=== PATIENT | male | born 1950 | race Caucasian/White ===

== ENCOUNTER 2018-11-03 21:18 | Inpatient (IN) ==
[2018-11-03] MEDS ORDERED: Morphine Inj 4 MG/ML Vial IV.PUSH ONE (21:39)
--- NOTE | 2018-11-03 21:44 | ED ---
HPI General Chief complaint: Abdominal Pain Stated complaint: Medical Time Seen by Provider: 11/03/18 21:38 History of Present Illness HPI narrative: This is a 68-year-old male who is on vacation from [place]. He reports a remote history of prostate cancer which was treated 12 years ago as well as a history of hyperlipidemia. He presents via EMS for evaluation of abdominal pain. This started this afternoon. The pain is primarily in the mid abdomen. The pain is intermittent. He reports that initially he had some nausea and vomiting however the nausea improved after Zofran administration by EMS. He reports that he had a large bowel movement prior to arrival. He is denying any objective fevers, flank pain, back pain, dysuria, testicular or scrotal pain. Denies any history of abdominal surgeries in the past. He has no other complaints at this time. Related Data Home Medications Medication Instructions Recorded Confirmed Crestor 5 mg PO DAILY 11/03/18 11/03/18 Allergies Allergy/AdvReac Type Severity Reaction Status Date / Time No Known Allergies Allergy Verified 11/03/18 21:33 Review of Systems ROS: all other systems reviewed are negative PMFSH Medical History Medical History Prostate cancer (Acute) Social History Social History Second Hand Smoke Exposure: No Smoking Status: Never smoker How Often Do You Have a Drink Containing Alcohol: Monthly or less Recent Travel in [facility] within the Last 8 Weeks: No Recent Out of Country Travel within the Last 8 Weeks: No Immunization History Tetanus Immunization: <5 Years Exam Narrative Exam Narrative: GENERAL: Well-nourished male in no acute distress SKIN: Warm and dry. HEAD: Atraumatic. Normocephalic. EYES: Pupils equal and round. No scleral icterus. No injection or drainage. ENT: No nasal bleeding or discharge. Mucous membranes pink and moist. NECK: Trachea midline. No JVD. CARDIOVASCULAR: Regular rate and rhythm. No murmur appreciated. RESPIRATORY: No accessory muscle use. Clear to auscultation. Breath sounds equal bilaterally. GASTROINTESTINAL: Abdomen soft, tender to palpation in the lower quadrants without guarding. MUSCULOSKELETAL: No obvious deformities. No clubbing. No cyanosis. No edema. NEUROLOGICAL: Awake and alert. No obvious cranial nerve deficits. Motor grossly within normal limits. Normal speech. Course Initial Documented Vital Signs Temperature 98.0 F 11/03/18 21:26 Pulse Rate 79 11/03/18 21:26 Respiratory Rate 16 11/03/18 21:26 Blood Pressure 142/67 H 11/03/18 21:26 Pulse Oximetry 99 11/03/18 21:26 Last Documented Vital Signs Temperature 98.0 F 11/03/18 21:26 Pulse Rate 71 11/03/18 23:33 Respiratory Rate 16 11/03/18 23:33 Blood Pressure 123/67 11/03/18 23:33 Pulse Oximetry 97 11/03/18 23:33 Medical Decision Making MDM Narrative Medical decision making narrative: The patient was placed on ECG monitoring pulse oximetry. IV established, lab work obtained, CT abdomen pelvis ordered. The patient was given IV morphine. He was given normal saline bolus. Lab work is been reviewed. CT imaging reveals a partial small bowel obstruction with no other obvious abnormalities. The appendix is not visualized however there are no inflammatory changes to suggest appendicitis. He has no leukocytosis. He is currently comfortable. He has no additional emesis during his ED stay. At this point in time the plan is to admit him to the hospitalist service for further treatment. Medical Screen Exam Complete: Yes Emergency Medical Condition: Yes Differential Diagnosis Differential Diagnosis: Appendicitis, diverticulitis, colitis, gastroenteritis, obstruction, mesenteric ischemia Lab Data Result diagrams: 11/03/18 21:45 11/03/18 21:45 Lab Results 11/03/18 11/03/18 11/03/18 Range/Units 21:45 21:45 21:45 WBC 8.8 (4.0-11.0) th/mm3 RBC 4.31 L (4.50-5.90) mil/mm3 Hgb 14.3 (13.0-17.0) gm/dL Hct 40.6 (39.0-51.0) % MCV 94.2 (80.0-100.0) fL MCH 33.2 (27.0-34.0) pg MCHC 35.3 (32.0-36.0) % RDW 12.2 (11.6-17.2) % Plt Count 162 (150-450) th/mm3 MPV 8.3 (7.0-11.0) fL Neut % (Auto) 88.6 H (16.0-70.0) % Lymph % (Auto) 7.1 L (9.0-44.0) % [place] % (Auto) 3.9 (0.0-8.0) % Eos % (Auto) 0.1 (0.0-4.0) % Baso % (Auto) 0.3 (0.0-2.0) % Neut # (Auto) 7.8 H (1.8-7.7) th/mm3 Lymph # (Auto) 0.6 L (1.0-4.8) th/mm3 [place] # (Auto) 0.3 (0.0-0.9) th/mm3 Eos # (Auto) 0.0 (0.0-0.4) th/mm3 Baso # (Auto) 0.0 (0.0-0.2) th/mm3 WBC Differential . Differential Comment Auto diff final PT 10.5 (9.8-11.6) sec INR 1.0 Ratio APTT 20.6 L (23.4-31.7) sec Sodium 139 (136-145) meq/L Potassium 3.9 (3.5-5.1) meq/L Chloride 105 (98-107) meq/L Carbon Dioxide 26.3 (21.0-32.0) meq/L Anion Gap 8 (5-15) meq/L BUN 15 (7-18) mg/dL Creatinine 1.11 (0.60-1.30) mg/dL Estimated GFR 65 L (>89) mL/min Random Glucose 161 H (74-106) mg/dL Calcium 9.1 (8.5-10.1) mg/dL Magnesium 2.1 (1.5-2.5) mg/dL Total Bilirubin 0.6 (0.2-1.0) mg/dL AST 22 (15-37) U/L ALT 22 (12-78) U/L Alkaline Phosphatase 69 (45-117) U/L Total Protein 7.6 (6.4-8.2) g/dL Albumin 3.5 (3.4-5.0) g/dL Lipase 128 (73-393) U/L Urine Color (Yellw/Straw) Urine Clarity (Clear) Urine pH (5.0-8.5) Ur Specific [place] (1.002-1.035) Urine Protein (Neg-Trace) mg/dL Urine Glucose (UA) (Negative) mg/dL Urine Ketones (Negative) mg/dL Urine Occult Blood (Negative) Urine Nitrate (Negative) Urine Bilirubin (Negative) Urine Urobilinogen (Less than 2) mg/dL Ur Leukocyte Esterase (Negative) Urine RBC (0-3) /hpf Urine WBC (0-5) /hpf Urine Bacteria (None) /hpf Urine Mucus (Occasional) /lpf Micro UA Comment Ur Microscopic Review Urine Culture Comments 11/03/18 Range/Units 21:45 WBC (4.0-11.0) th/mm3 RBC (4.50-5.90) mil/mm3 Hgb (13.0-17.0) gm/dL Hct (39.0-51.0) % MCV (80.0-100.0) fL MCH (27.0-34.0) pg MCHC (32.0-36.0) % RDW (11.6-17.2) % Plt Count (150-450) th/mm3 MPV (7.0-11.0) fL Neut % (Auto) (16.0-70.0) % Lymph % (Auto) (9.0-44.0) % [place] % (Auto) (0.0-8.0) % Eos % (Auto) (0.0-4.0) % Baso % (Auto) (0.0-2.0) % Neut # (Auto) (1.8-7.7) th/mm3 Lymph # (Auto) (1.0-4.8) th/mm3 [place] # (Auto) (0.0-0.9) th/mm3 Eos # (Auto) (0.0-0.4) th/mm3 Baso # (Auto) (0.0-0.2) th/mm3 WBC Differential Differential Comment PT (9.8-11.6) sec INR Ratio APTT (23.4-31.7) sec Sodium (136-145) meq/L Potassium (3.5-5.1) meq/L Chloride (98-107) meq/L Carbon Dioxide (21.0-32.0) meq/L Anion Gap (5-15) meq/L BUN (7-18) mg/dL Creatinine (0.60-1.30) mg/dL Estimated GFR (>89) mL/min Random Glucose (74-106) mg/dL Calcium (8.5-10.1) mg/dL Magnesium (1.5-2.5) mg/dL Total Bilirubin (0.2-1.0) mg/dL AST (15-37) U/L ALT (12-78) U/L Alkaline Phosphatase (45-117) U/L Total Protein (6.4-8.2) g/dL Albumin (3.4-5.0) g/dL Lipase (73-393) U/L Urine Color Yellow (Yellw/Straw) Urine Clarity Hazy H (Clear) Urine pH 6.0 (5.0-8.5) Ur Specific [place] 1.023 (1.002-1.035) Urine Protein 30 H (Neg-Trace) mg/dL Urine Glucose (UA) Negative (Negative) mg/dL Urine Ketones 80 or greater H (Negative) mg/dL Urine Occult Blood Negative (Negative) Urine Nitrate Negative (Negative) Urine Bilirubin Negative (Negative) Urine Urobilinogen 0.2 (Less than 2) mg/dL Ur Leukocyte Esterase Negative (Negative) Urine RBC Less than 1 (0-3) /hpf Urine WBC 2 (0-5) /hpf Urine Bacteria Rare H (None) /hpf Urine Mucus Few H (Occasional) /lpf Micro UA Comment Culture not ind Ur Microscopic Review Not Reportable Urine Culture Comments Culture not ind Imaging Data Radiologist's impression: Abdomen/Pelvis CT 11/03/18 21:39 CONCLUSION: 1. Proximal to mid partial small bowel obstruction without obstructing lesion. This may relate to adhesions. No free air or free fluid. 2. The appendix is not definitively identified but no inflammatory changes seen within the right lower quadrant to suggest acute appendicitis. Discharge Plan Discharge Disposition Patient Disposition: ED Admit(ED Internal Use Only) Discharge Condition Condition: Stable Discharge Order Discharge Orders: ED Use Only Admit Order (Routine); Ordered 11/03/18 Ordered By: Frank Lopes Discharge Details Diagnosis: Small bowel obstruction Physicians Team ED Provider: Christopher Rosenberg ED Midlevel Provider: Frank Lopes Primary Care Provider: Primary Care OmeriTamera Rxs /Orders / Referrals /Forms Prescriptions: No Action Crestor 5 mg PO DAILY RF: 0 Status ED Status: With Doctor
[2018-11-03 22:07] LABS: Baso % (Auto) 0.3 % (0.0-2.0); Eos % (Auto) 0.1 % (0.0-4.0); Hematocrit 40.6 % (39.0-51.0); Hemoglobin 14.3 gm/dL (13.0-17.0); Lymph # (Auto) 0.6 th/mm3 (1.0-4.8); Lymph % (Auto) 7.1 % (9.0-44.0); Mean Corpuscular HGB Conc 35.3 % (32.0-36.0); Mean Corpuscular Hemoglobin 33.2 pg (27.0-34.0); Mean Corpuscular Volume 94.2 fL (80.0-100.0); Mean Platelet Volume 8.3 fL (7.0-11.0); Mono # (Auto) 0.3 th/mm3 (0.0-0.9); Mono % (Auto) 3.9 % (0.0-8.0); Neut # (Auto) 7.8 th/mm3 (1.8-7.7); Neut % (Auto) 88.6 % (16.0-70.0); Platelet Count 162 th/mm3 (150-450); Red Blood Count 4.31 mil/mm3 (4.50-5.90); Red Cell Distribution Width 12.2 % (11.6-17.2); White Blood Count 8.8 th/mm3 (4.0-11.0)
[2018-11-03 22:10] LABS: Bacteria,Urine Rare /hpf; Bilirubin,Urine Negative (Negative); Clarity,Urine Hazy (Clear); Color,Urine Yellow (Yellw/Straw); Glucose,Urine (UA) Negative (Negative); Leukocyte Esterase,Urine Negative (Negative); Mucus,Urine Few /lpf (Occasional); Nitrite,Urine Negative (Negative); Specific Gravity,Urine 1.023 (1.002-1.035)
[2018-11-03 22:13] LABS: Urobilinogen,Urine 0.2 mg/dL (Less than 2)
[2018-11-03 22:22] LABS: Prothrombin Time 10.5 sec (9.8-11.6)
[2018-11-03 22:26] LABS: Alanine Aminotransferase 22 U/L (12-78); Albumin 3.5 g/dL (3.4-5.0); Anion Gap 8 meq/L (5-15); Aspartate Aminotransferase 22 U/L (15-37); Blood Urea Nitrogen 15 mg/dL (7-18); Calcium 9.1 mg/dL (8.5-10.1); Carbon Dioxide 26.3 meq/L (21.0-32.0); Chloride 105 meq/L (98-107); Glomerular Filtration Rate 65 mL/min (>89); Glucose,Random 161 mg/dL (74-106); Lipase 128 U/L (73-393); Magnesium 2.1 mg/dL (1.5-2.5); Potassium 3.9 meq/L (3.5-5.1); Sodium 139 meq/L (136-145)
[2018-11-03 22:27] LABS: Activated Partial Thrombo Time 20.6 sec (23.4-31.7)
[2018-11-03 22:28] LABS: Alkaline Phosphatase 69 U/L (45-117); Total Protein 7.6 g/dL (6.4-8.2)
[2018-11-03] MEDS ORDERED: Sod Chloride 0.9% Inj 1,000 ML IV.SIG SCH (22:30)
--- NOTE | 2018-11-03 23:26 | CT ---
EXAM DATE: 11/03/2018 11:10 PM EST AGE/SEX: 68 years / Male INDICATIONS: Right lower quadrant pain. CLINICAL DATA: This is the patient's initial encounter. Patient reports that signs and symptoms have been present for 2 days and indicates a pain score of 7/10. MEDICAL/SURGICAL HISTORY: Carcinoma, prostatic. None. ORAL CONTRAST: No oral contrast ingested. RADIATION DOSE: 7.49 CTDI (mGy) COMPARISON: No prior exams available for comparison. TECHNIQUE: Multiple contiguous axial images were obtained through the abdomen and pelvis following b olus infusion of 95 ml Omnipaque 350 (iohexol) nonionic water-soluble contrast as a single exam dos e. No oral contrast ingested. Using automated exposure control and adjustment of the mA and/or kV ac cording to patient size, radiation dose was kept as low as reasonably achievable to obtain optimal di agnostic quality images. DICOM format image data is available electronically for review and comparis on. FINDINGS: Lower Lungs: The visualized lower lungs are clear. Liver: The liver has a homogeneous density without space-occupying lesion. There is no dilation of th e biliary tree. Gallbladder is unremarkable. Spleen: Homogeneous density without enlargement. Pancreas: Unremarkable without mass or calcification. Kidneys: Normal in size and shape. No evidence of mass or hydronephrosis. Adrenal Glands: Unremarkable. Aorta: The aorta and proximal iliac vessels are grossly unremarkable without aneurysmal dilation. Bowel/Mesentery: Dilated loops of fluid-filled proximal small bowel are seen throughout the abdomen with a gentle tapering of the caliber within the left lateral abdomen. No obstructing mass. No inflam matory change. The distal small bowel is normal in caliber as is the colon. The appendix is not defin itively identified but no inflammatory process seen within the right lower quadrant. No free air or f ree fluid Abdominal Wall: Intact. Retroperitoneum: No evidence of adenopathy in the retrocrural, para-aortic, or deep pelvic regions. Bladder: Contours are smooth. Reproductive Organs: No abnormal masses or calcifications seen. Inguinal: The inguinal region is unremarkable without evidence of adenopathy. Bony Structures: Unremarkable. CONCLUSION: 1. Proximal to mid partial small bowel obstruction without obstructing lesion. This may relate to ad hesions. No free air or free fluid. 2. The appendix is not definitively identified but no inflammatory changes seen within the right low er quadrant to suggest acute appendicitis. Electronically signed by: Major Cruz MD Board Certified Radiologist 11/03/2018 11:25 PM EST
[2018-11-04] MEDS ORDERED: Bisacodyl 10 MG Supp RECTAL PRN (00:08)
[2018-11-04] MEDS ORDERED: Acetaminophen 325 MG Tablet PO PRN (00:08)
[2018-11-04] MEDS ORDERED: Morphine Inj 4 MG/ML Vial IV.PUSH PRN (00:12)
--- NOTE | 2018-11-04 00:14 | P.HP ---
History of Present Illness Service: [facility] Primary Care Physician: No Primary Care Physician History of Present Illness: 68-year-old male with past medical history significant for history of prostate cancer and hyperlipidemia presents to the emergency department for evaluation of abdominal pain. The patient reports that he started having severe periumbilical abdominal pain this afternoon. He self-induced vomiting without relief. He endorses associated nausea with no further emesis. Last bowel movement was this evening just before EMS arrived. He endorses chills with no associated fevers. Denies chest pain or shortness of breath. No focal neurologic deficits. Inpatient Certification: I certify that the inpatient services were ordered in accordance with Medicare regulations governing the order. This includes certification that hospital inpatient services are reasonable and necessary and in the case of services not specified as inpatient-only under 42 CFR 419.22(n), that they are appropriately provided as inpatient services in accordance to with the 2-midnight benchmark under 43 CFR 412.3(e) Review of Systems All other systems reviewed negative except as stated in HPI PMFSH - History History Provided By: Patient, Family Member - Medical History Medical History: Medical History (Last Updated 11/04/18 @ 00:10 by Ines Howe MD) Hyperlipidemia Prostate cancer - Surgical History Surgical History: Surgical History (Last Updated 11/04/18 @ 00:11 by Ines Howe MD) History of cataract surgery - Family History Family History: Family History (Last Updated 11/04/18 @ 00:11 by Ines Howe MD) Other Family history normal - Tobacco History Second Hand Smoke Exposure: No Smoking Status: Never smoker - Alcohol History How Often Do You Have a Drink Containing Alcohol: Monthly or less - Travel History Recent Travel in the [place] Within the Last 8 Weeks: No Recent Travel Out of the Country Within the Last 8 Weeks: No - Immunization History Tetanus Immunization: <5 Years Medications and Allergies Active Medications: Active Medications Sodium Chloride (Ns Flush) 2 ml IV.FLUSH PRN PRN PRN Reason: FLUSH AFTER USING IV ACCESS Allergies Allergy/AdvReac Type Severity Reaction Status Date / Time No Known Allergies Allergy Verified 11/03/18 21:33 Home Medications Medication Instructions Recorded Confirmed Type Crestor 5 mg PO DAILY 11/03/18 11/03/18 History Exam Vital signs: Vital Signs 11/03/18 21:26 11/03/18 23:33 Temperature 98.0 F Pulse Rate 79 71 Respiratory Rate 16 16 Blood Pressure 142/67 H 123/67 Pulse Oximetry 99 97 Intake & Output 11/03/18 11/03/18 11/04/18 06:59 18:59 06:59 Intake Total 1000 / 1000 Balance 1000 / 1000 Weight 182 kg Intake: IV 1000 / 1000 NS Inj 1,000 ML @ 1000 mls/hr 1000 / 1000 IV.SIG BOLUS RIMA Rx#:[id number] Narrative: Gen.: No acute distress Head: Normocephalic. Atraumatic. EENT: Pupils equal round and reactive to light. Nose without drainage. Airway intact. Throat without injection. Cardiovascular: Regular rate and rhythm. No murmurs, rubs or gallops. Respiratory: Lungs clear to auscultation bilaterally. No wheezes or rhonchi. Abdomen: Soft, mildly distended, tender to palpation worse in the umbilical region. Musculoskeletal: No gross deformities. No edema. Skin: No obvious rashes or erythema. Neuro: Sensory and motor grossly intact. Cranial nerves II through XII grossly intact. Results - Labs CBC & Chem 7: 11/03/18 21:45 11/03/18 21:45 Labs: Laboratory Results - last 24 hr 11/03/18 11/03/18 11/03/18 21:45 21:45 21:45 WBC 8.8 RBC 4.31 L Hgb 14.3 Hct 40.6 MCV 94.2 MCH 33.2 MCHC 35.3 RDW 12.2 Plt Count 162 MPV 8.3 Neut % (Auto) 88.6 H Lymph % (Auto) 7.1 L [place] % (Auto) 3.9 Eos % (Auto) 0.1 Baso % (Auto) 0.3 Neut # (Auto) 7.8 H Lymph # (Auto) 0.6 L [place] # (Auto) 0.3 Eos # (Auto) 0.0 Baso # (Auto) 0.0 WBC Differential . Differential Comment Auto diff final PT 10.5 INR 1.0 APTT 20.6 L Sodium 139 Potassium 3.9 Chloride 105 Carbon Dioxide 26.3 Anion Gap 8 BUN 15 Creatinine 1.11 Estimated GFR 65 L Random Glucose 161 H Calcium 9.1 Magnesium 2.1 Total Bilirubin 0.6 AST 22 ALT 22 Alkaline Phosphatase 69 Total Protein 7.6 Albumin 3.5 Lipase 128 Urine Color Urine Clarity Urine pH Ur Specific [place] Urine Protein Urine Glucose (UA) Urine Ketones Urine Occult Blood Urine Nitrate Urine Bilirubin Urine Urobilinogen Ur Leukocyte Esterase Urine RBC Urine WBC Urine Bacteria Urine Mucus Micro UA Comment Ur Microscopic Review Urine Culture Comments 11/03/18 21:45 WBC RBC Hgb Hct MCV MCH MCHC RDW Plt Count MPV Neut % (Auto) Lymph % (Auto) [place] % (Auto) Eos % (Auto) Baso % (Auto) Neut # (Auto) Lymph # (Auto) [place] # (Auto) Eos # (Auto) Baso # (Auto) WBC Differential Differential Comment PT INR APTT Sodium Potassium Chloride Carbon Dioxide Anion Gap BUN Creatinine Estimated GFR Random Glucose Calcium Magnesium Total Bilirubin AST ALT Alkaline Phosphatase Total Protein Albumin Lipase Urine Color Yellow Urine Clarity Hazy H Urine pH 6.0 Ur Specific [place] 1.023 Urine Protein 30 H Urine Glucose (UA) Negative Urine Ketones 80 or greater H Urine Occult Blood Negative Urine Nitrate Negative Urine Bilirubin Negative Urine Urobilinogen 0.2 Ur Leukocyte Esterase Negative Urine RBC Less than 1 Urine WBC 2 Urine Bacteria Rare H Urine Mucus Few H Micro UA Comment Culture not ind Ur Microscopic Review Not Reportable Urine Culture Comments Culture not ind - Imaging Impressions Abdomen/Pelvis CT 11/03/18 21:39 CONCLUSION: 1. Proximal to mid partial small bowel obstruction without obstructing lesion. This may relate to adhesions. No free air or free fluid. 2. The appendix is not definitively identified but no inflammatory changes seen within the right lower quadrant to suggest acute appendicitis. Caprini VTE Risk Assessment Caprini VTE Risk Assessment: Moderate/High Risk (score >= 2) Caprini Risk Assessment Model: Point Value = 1 Point Value = 2 Point Value = 3 Point Value = 5 Age 41-60 Minor surgery BMI > 25 kg/m2 Swollen legs Varicose veins or History of unexplained or recurrent spontaneous Oral contraceptives or hormone replacement Sepsis (< 1 month) Serious lung disease, including pneumonia (< 1 month) Abnormal pulmonary function Acute myocardial infarction Congestive heart failure (< 1 month) History of inflammatory bowel disease Medical patient at bed rest Age 61-74 Arthroscopic surgery Major open surgery (> 45 min) Laparoscopic surgery (> 45 min) Malignancy Confined to bed (> 72 hours) Immobilizing plaster cast Central venous access Age >= 75 History of VTE Family history of VTE Factor V Leiden Prothrombin 42428C Lupus anticoagulant Anticardiolipin antibodies Elevated serum homocysteine Heparin-induced thrombocytopenia Other congenital or acquired thrombophilia Stroke (< 1 month) Elective arthroplasty Hip, pelvis, or leg fracture Acute spinal cord injury (< 1 month) Prophylaxis Regimen: Total Risk Factor Score Risk Level Prophylaxis Regimen 0-1 Low Early ambulation 2 Moderate Order ONE of the following: *Sequential Compression Device (SCD) *Heparin 5000 units SQ BID 3-4 Higher Order ONE of the following medications: *Heparin 5000 units SQ TID *Enoxaparin/Lovenox 40 mg SQ daily (WT < 150 kg, CrCl > 30 mL/min) *Enoxaparin/Lovenox 30 mg SQ daily (WT < 150 kg, CrCl > 10-29 mL/min) *Enoxaparin/Lovenox 30 mg SQ BID (WT < 150 kg, CrCl > 30 mL/min) AND/OR *Sequential Compression Device (SCD) 5 or more Highest Order ONE of the following medications: *Heparin 5000 units SQ TID (Preferred with Epidurals) *Enoxaparin/Lovenox 40 mg SQ daily (WT < 150 kg, CrCl > 30 mL/min) *Enoxaparin/Lovenox 30 mg SQ daily (WT < 150 kg, CrCl > 10-29 mL/min) *Enoxaparin/Lovenox 30 mg SQ BID (WT < 150 kg, CrCl > 30 mL/min) AND *Sequential Compression Device (SCD) Assessment and Plan - Plan Assessment/plan: 1. Partial small bowel obstruction CT of the abdomen/pelvis shows proximal to mid partial small bowel obstruction without lesion Patient denies history of previous abdominal surgeries General surgery consulted, appreciate assistance N.p.o. Morphine for pain 2. History of prostate cancer Continue home medications once tolerating p.o. 3. Hyperlipidemia Resume home medications when indicated FEN N.p.o. Electrolytes: Monitor and replete as needed Holding pharmacologic anticoagulation until cleared by general surgery NS at 100 cc/hour
[2018-11-04] MEDS: Sod Chloride 0.9% Inj 1,000 ML IV.CONT SCH ×2 (01:35→21:49)
--- NOTE | 2018-11-04 10:11 | P.CONGS ---
[facility] Gen Surgery Consult Note Consult date: 11/04/18 Reason for consult: other (small bowel obstruction) Requesting physician: Roselia Harley Narrative: This is a 68 year old male with a past medical history of prostate cancer treated with radiation and dyslipidemia who presented to the ED last night for evaluation of acute onset of abdominal pain with nausea and vomiting. He states he was in his usual state of health until yesterday afternoon when he developed the abdominal pain, nausea and vomiting. He did have a bowel movement last night. He reports he has had similar episodes to this in the past. He states this usually happens when he is very tired. He states he is able to take a pill, that he cannot recall the name of, and the symptoms resolve. The patient is from [place] and here on vacation. He drove down over three days and then spent [place] the [place] in the sun. A CT abdomen/ pelvis was obtained which shows proximal to mid partial small bowel obstruction without any obstructing lesions. His laboratory results are unremarkable. He is currently asymptomatic at the time of exam today. Of note, the patient had a colonoscopy about 4 years ago which was normal with no issues. Review of Systems All other systems reviewed negative except as stated in [facility] - History History Provided By: Patient - Medical History Medical History: Medical History (Last Reviewed 11/04/18 @ 10:08 by PERLA Randolph) Hyperlipidemia Prostate cancer - Surgical History Surgical History: Surgical History (Last Reviewed 11/04/18 @ 10:08 by PERLA Randolph) History of cataract surgery - Family History Family History: Family History (Last Updated 11/04/18 @ 00:11 by Ines Howe MD) Other Family history normal - Tobacco History Second Hand Smoke Exposure: No Smoking Status: Never smoker - Alcohol History How Often Do You Have a Drink Containing Alcohol: Monthly or less - Substance Use History Substance History: No History of Abuse - Travel History Recent Travel in the [place] Within the Last 8 Weeks: No Recent Travel Out of the Country Within the Last 8 Weeks: No - Immunization History Tetanus Immunization: <5 Years Hx Influenza Vaccine This Season: Yes Medications and Allergies Allergies Allergy/AdvReac Type Severity Reaction Status Date / Time No Known Allergies Allergy Verified 11/03/18 21:33 Home Medications Medication Instructions Recorded Confirmed Type Crestor 5 mg PO DAILY 11/03/18 11/03/18 History Active Medications: Active Medications Acetaminophen (Tylenol) 650 mg PO Q4H PRN PRN Reason: Temp > 100.4 Al Hydroxide/Mg Hydroxide (Milk Of Magnesia Liq) 30 ml PO Q12H PRN PRN Reason: Mild Constipation Bisacodyl (Dulcolax Supp) 10 mg RECTAL DAILY PRN PRN Reason: SEVERE CONSITIPATION Sodium Chloride (Ns Inj) 1,000 mls @ 100 mls/hr IV.CONT .Q10H COUNT INCLUDES THE [facility] Last Admin: 11/04/18 01:35 Dose: 100 mls/hr Lactulose (Lactulose Liq) 30 ml PO DAILY PRN PRN Reason: SEVERE CONSITIPATION Morphine Sulfate (Morphine Inj) 4 mg IV.PUSH Q3H PRN PRN Reason: PAIN SCALE 1 TO 10 Ondansetron HCl (Zofran Inj) 4 mg IV.PUSH Q6H PRN PRN Reason: NAUSEA OR VOMITING Sennosides (Senokot) 17.2 mg PO Q12H PRN PRN Reason: Moderate Constipation Sodium Chloride (Ns Flush) 2 ml IV.FLUSH BID RIMA Sodium Chloride (Ns Flush) 2 ml IV.FLUSH PRN PRN PRN Reason: FLUSH AFTER USING IV ACCESS Exam Vital signs: Vital Signs 11/03/18 21:26 11/03/18 23:33 11/04/18 01:14 Temperature 98.0 F 98.3 F Pulse Rate 79 71 67 Respiratory Rate 16 16 18 Blood Pressure 142/67 H 123/67 116/56 L Pulse Oximetry 99 97 95 11/04/18 04:23 11/04/18 06:07 11/04/18 09:03 Temperature 98.0 F 99.2 F Pulse Rate 62 64 Respiratory Rate 18 18 18 Blood Pressure 111/57 L 111/58 L Pulse Oximetry 96 95 Intake & Output 11/03/18 11/04/18 11/04/18 18:59 06:59 18:59 Intake Total 1000 / 1000 Balance 1000 / 1000 Weight 76.2 kg Intake: IV 1000 / 1000 NS Inj 1,000 ML @ 1000 mls/hr 1000 / 1000 IV.SIG BOLUS RIMA Rx#:[id number] Oral 0 / 0 Other: # Voids 2 Date of Last Bowel Movement 11/03/18 # Bowel Movements 0 Weight On Admission 76.2 kg Narrative: GENERAL: Very pleasant 68 year old male resting in bed in no acute distress. SKIN: Warm and dry. HEAD: Atraumatic. Normocephalic. EYES: Pupils equal and round. No scleral icterus. No injection or drainage. ENT: No nasal bleeding or discharge. Mucous membranes pink and moist. NECK: Trachea midline. CARDIOVASCULAR: Regular rate and rhythm. RESPIRATORY: No accessory muscle use. Clear to auscultation. Breath sounds equal bilaterally. GASTROINTESTINAL: Abdomen soft, non-tender, nondistended. No visible scars or hernias. MUSCULOSKELETAL: Extremities without clubbing, cyanosis, or edema. No obvious deformities. NEUROLOGICAL: Awake and alert. No obvious cranial nerve deficits. Motor grossly within normal limits. Five out of 5 muscle strength in the arms and legs. Normal speech. PSYCHIATRIC: Appropriate mood and affect; insight and judgment normal. Results - Labs 11/05/18 04:59 11/05/18 04:59 Laboratory Results - last 24 hr 11/03/18 11/03/18 11/03/18 21:45 21:45 21:45 WBC 8.8 RBC 4.31 L Hgb 14.3 Hct 40.6 MCV 94.2 MCH 33.2 MCHC 35.3 RDW 12.2 Plt Count 162 MPV 8.3 Neut % (Auto) 88.6 H Lymph % (Auto) 7.1 L [place] % (Auto) 3.9 Eos % (Auto) 0.1 Baso % (Auto) 0.3 Neut # (Auto) 7.8 H Lymph # (Auto) 0.6 L [place] # (Auto) 0.3 Eos # (Auto) 0.0 Baso # (Auto) 0.0 WBC Differential . Differential Comment Auto diff final PT 10.5 INR 1.0 APTT 20.6 L Sodium 139 Potassium 3.9 Chloride 105 Carbon Dioxide 26.3 Anion Gap 8 BUN 15 Creatinine 1.11 Estimated GFR 65 L Random Glucose 161 H Calcium 9.1 Magnesium 2.1 Total Bilirubin 0.6 AST 22 ALT 22 Alkaline Phosphatase 69 Total Protein 7.6 Albumin 3.5 Lipase 128 Urine Color Urine Clarity Urine pH Ur Specific [place] Urine Protein Urine Glucose (UA) Urine Ketones Urine Occult Blood Urine Nitrate Urine Bilirubin Urine Urobilinogen Ur Leukocyte Esterase Urine RBC Urine WBC Urine Bacteria Urine Mucus Micro UA Comment Ur Microscopic Review Urine Culture Comments 11/03/18 21:45 WBC RBC Hgb Hct MCV MCH MCHC RDW Plt Count MPV Neut % (Auto) Lymph % (Auto) [place] % (Auto) Eos % (Auto) Baso % (Auto) Neut # (Auto) Lymph # (Auto) [place] # (Auto) Eos # (Auto) Baso # (Auto) WBC Differential Differential Comment PT INR APTT Sodium Potassium Chloride Carbon Dioxide Anion Gap BUN Creatinine Estimated GFR Random Glucose Calcium Magnesium Total Bilirubin AST ALT Alkaline Phosphatase Total Protein Albumin Lipase Urine Color Yellow Urine Clarity Hazy H Urine pH 6.0 Ur Specific [place] 1.023 Urine Protein 30 H Urine Glucose (UA) Negative Urine Ketones 80 or greater H Urine Occult Blood Negative Urine Nitrate Negative Urine Bilirubin Negative Urine Urobilinogen 0.2 Ur Leukocyte Esterase Negative Urine RBC Less than 1 Urine WBC 2 Urine Bacteria Rare H Urine Mucus Few H Micro UA Comment Culture not ind Ur Microscopic Review Not Reportable Urine Culture Comments Culture not ind - Imaging Imaging: ITS Impressions Abdomen/Pelvis CT 11/03/18 21:39 CONCLUSION: 1. Proximal to mid partial small bowel obstruction without obstructing lesion. This may relate to adhesions. No free air or free fluid. 2. The appendix is not definitively identified but no inflammatory changes seen within the right lower quadrant to suggest acute appendicitis. CT scan - abdomen: image reviewed Assessment and Plan - Plan 68 year old male with abdominal pain/nausea/vomiting; radiological findings of SBO -Complete resolution of symptoms -Abdominal exam benign -KUB this AM continues to show dilated loops -Will do trial of clear liquids -Discussed surgical vs non surgical management -Encouraged OOB -IVF -If tolerates clear liquids ---will plan to advance diet -Thank you for this consult; We will continue to follow Discussed Condition With: Dr. Luis Smith and Mrs. Palacios - Attending Attestation The exam, history, and the medical decision-making described in the above note were completed with the assistance of the mid-level provider. I reviewed and agree with the findings presented. I attest that I had a [id number] encounter with the patient on the same day, and personally performed and documented my assessment and findings in the medical record. partial SBO abdominal exam stable, non-surgical recommend non-operative mgmt' d/w family/patient
--- NOTE | 2018-11-04 11:15 | XR ---
EXAM DATE: 11/04/2018 11:11 AM EST AGE/SEX: 68 years / Male INDICATIONS: Vomiting CLINICAL DATA: This is the patient's initial encounter. Patient reports that signs and symptoms have been present for 1 day and indicates a pain score of 0/10. MEDICAL/SURGICAL HISTORY: Carcinoma, prostatic. None. COMPARISON: [facility] [place], CT ABDOMEN & PELVIS W CONTRAST, 11/03/2018. . FINDINGS: Air-filled mildly dilated loops of small bowel are again noted consistent with possible partial small bowel obstruction or ileus. The colon is nondistended. CONCLUSION: Air-filled mildly dilated loops of small bowel are again noted consistent with possible partial small bowel obstruction or ileus. Electronically signed by: Alex Max MD Board Certified Radiologist 11/04/2018 11:14 AM EST
--- NOTE | 2018-11-04 13:03 | P.PN ---
Subjective Interval history: seen with this am no previous surgeries- per patient this happens to him almost every year triggered by stress this am no abdominla pain + flatus tolerated clears Physical Exam Vital signs: Vital Signs 11/03/18 21:26 11/03/18 23:33 11/04/18 01:14 Temperature 98.0 F 98.3 F Pulse Rate 79 71 67 Respiratory Rate 16 16 18 Blood Pressure 142/67 H 123/67 116/56 L Pulse Oximetry 99 97 95 11/04/18 04:23 11/04/18 06:07 11/04/18 09:03 Temperature 98.0 F 99.2 F Pulse Rate 62 64 Respiratory Rate 18 18 18 Blood Pressure 111/57 L 111/58 L Pulse Oximetry 96 95 11/04/18 12:00 Temperature 98.3 F Pulse Rate 67 Respiratory Rate 20 Blood Pressure 128/61 Pulse Oximetry 96 Intake & Output 11/03/18 11/04/18 11/04/18 18:59 06:59 18:59 Intake Total 1000 / 1000 Balance 1000 / 1000 Weight 76.2 kg Intake: IV 1000 / 1000 NS Inj 1,000 ML @ 1000 mls/hr 1000 / 1000 IV.SIG BOLUS RIMA Rx#:[id number] Oral 0 / 0 Other: # Voids 2 Date of Last Bowel Movement 11/03/18 # Bowel Movements 0 Weight On Admission 76.2 kg Narrative: GENERAL: Very pleasant 68 year old male resting in bed in no acute distress. SKIN: Warm and dry. HEAD: Atraumatic. Normocephalic. EYES: Pupils equal and round. No scleral icterus. No injection or drainage. ENT: No nasal bleeding or discharge. Mucous membranes pink and moist. NECK: Trachea midline. CARDIOVASCULAR: Regular rate and rhythm. RESPIRATORY: No accessory muscle use. Clear to auscultation. Breath sounds equal bilaterally. GASTROINTESTINAL: Abdomen soft, non-tender, nondistended. No visible scars or hernias. MUSCULOSKELETAL: Extremities without clubbing, cyanosis, or edema. No obvious deformities. NEUROLOGICAL: [id number] PSYCHIATRIC: Appropriate mood and affect; insight and judgment normal. Results - Labs CBC & Chem 7: 11/03/18 21:45 11/03/18 21:45 Laboratory Results - last 24 hr 11/03/18 11/03/18 11/03/18 21:45 21:45 21:45 WBC 8.8 RBC 4.31 L Hgb 14.3 Hct 40.6 MCV 94.2 MCH 33.2 MCHC 35.3 RDW 12.2 Plt Count 162 MPV 8.3 Neut % (Auto) 88.6 H Lymph % (Auto) 7.1 L [place] % (Auto) 3.9 Eos % (Auto) 0.1 Baso % (Auto) 0.3 Neut # (Auto) 7.8 H Lymph # (Auto) 0.6 L [place] # (Auto) 0.3 Eos # (Auto) 0.0 Baso # (Auto) 0.0 WBC Differential . Differential Comment Auto diff final PT 10.5 INR 1.0 APTT 20.6 L Sodium 139 Potassium 3.9 Chloride 105 Carbon Dioxide 26.3 Anion Gap 8 BUN 15 Creatinine 1.11 Estimated GFR 65 L Random Glucose 161 H Calcium 9.1 Magnesium 2.1 Total Bilirubin 0.6 AST 22 ALT 22 Alkaline Phosphatase 69 Total Protein 7.6 Albumin 3.5 Lipase 128 Urine Color Urine Clarity Urine pH Ur Specific [place] Urine Protein Urine Glucose (UA) Urine Ketones Urine Occult Blood Urine Nitrate Urine Bilirubin Urine Urobilinogen Ur Leukocyte Esterase Urine RBC Urine WBC Urine Bacteria Urine Mucus Micro UA Comment Ur Microscopic Review Urine Culture Comments 11/03/18 21:45 WBC RBC Hgb Hct MCV MCH MCHC RDW Plt Count MPV Neut % (Auto) Lymph % (Auto) [place] % (Auto) Eos % (Auto) Baso % (Auto) Neut # (Auto) Lymph # (Auto) [place] # (Auto) Eos # (Auto) Baso # (Auto) WBC Differential Differential Comment PT INR APTT Sodium Potassium Chloride Carbon Dioxide Anion Gap BUN Creatinine Estimated GFR Random Glucose Calcium Magnesium Total Bilirubin AST ALT Alkaline Phosphatase Total Protein Albumin Lipase Urine Color Yellow Urine Clarity Hazy H Urine pH 6.0 Ur Specific [place] 1.023 Urine Protein 30 H Urine Glucose (UA) Negative Urine Ketones 80 or greater H Urine Occult Blood Negative Urine Nitrate Negative Urine Bilirubin Negative Urine Urobilinogen 0.2 Ur Leukocyte Esterase Negative Urine RBC Less than 1 Urine WBC 2 Urine Bacteria Rare H Urine Mucus Few H Micro UA Comment Culture not ind Ur Microscopic Review Not Reportable Urine Culture Comments Culture not ind - Imaging Impressions Abdomen/Pelvis CT 11/03/18 21:39 CONCLUSION: 1. Proximal to mid partial small bowel obstruction without obstructing lesion. This may relate to adhesions. No free air or free fluid. 2. The appendix is not definitively identified but no inflammatory changes seen within the right lower quadrant to suggest acute appendicitis. Abdomen X-Ray 11/04/18 00:00 CONCLUSION: Air-filled mildly dilated loops of small bowel are again noted consistent with possible partial small bowel obstruction or ileus. Assessment and Plan - Plan 68 years old male here visiting from [place] he is an accounts receivable manager Partial small bowel obstruction - no previous surgeries- states this happens almost every year triggered by stress- states he takes Lorazpam prn if this happens and resolves CT of the abdomen/pelvis shows proximal to mid partial small bowel obstruction without lesion Patient denies history of previous abdominal surgeries General surgery ff- started on liquid diet KUB for this am ordered History of prostate cancer Continue home medications once tolerating p.o. Hyperlipidemia Resume home medications when indicated FEN clear liquid up and ambulates- encourage " I' ve been doing it" If stable for DC in am
[2018-11-04] MEDS ORDERED: LORazepam 1 MG Tablet PO ONE (21:00)
[2018-11-05 01:40] VITALS: RESP 18
[2018-11-05] MEDS: Sod Chloride 0.9% Inj 1,000 ML IV.CONT SCH (05:53)
[2018-11-05 07:00] LABS: Baso % (Auto) 0.2 % (0.0-2.0); Eos # (Auto) 0.1 th/mm3 (0.0-0.4); Eos % (Auto) 1.4 % (0.0-4.0); Hemoglobin 12.9 gm/dL (13.0-17.0); Lymph # (Auto) 1.6 th/mm3 (1.0-4.8); Lymph % (Auto) 31.6 % (9.0-44.0); Mean Corpuscular HGB Conc 34.8 % (32.0-36.0); Mean Corpuscular Hemoglobin 33.2 pg (27.0-34.0); Mean Corpuscular Volume 95.4 fL (80.0-100.0); Mean Platelet Volume 8.3 fL (7.0-11.0); Mono # (Auto) 0.7 th/mm3 (0.0-0.9); Mono % (Auto) 13.4 % (0.0-8.0); Neut # (Auto) 2.6 th/mm3 (1.8-7.7); Neut % (Auto) 53.4 % (16.0-70.0); Platelet Count 165 th/mm3 (150-450); Red Blood Count 3.88 mil/mm3 (4.50-5.90); Red Cell Distribution Width 12.9 % (11.6-17.2); White Blood Count 4.9 th/mm3 (4.0-11.0)
[2018-11-05 07:25] LABS: Calcium 8.4 mg/dL (8.5-10.1); Carbon Dioxide 30.4 meq/L (21.0-32.0); Potassium 4.2 meq/L (3.5-5.1)
--- NOTE | 2018-11-05 08:19 | P.PNGS ---
Subjective Interval history: Ambulating in room No issues overnight Physical Exam Vital signs: Vital Signs 11/04/18 09:03 11/04/18 12:00 11/04/18 16:00 Temperature 99.2 F 98.3 F 99.0 F Pulse Rate 64 67 70 Respiratory Rate 18 20 20 Blood Pressure 111/58 L 128/61 127/64 Pulse Oximetry 95 96 98 11/04/18 19:51 11/04/18 23:24 11/05/18 01:39 Temperature 98.3 F 98.8 F Pulse Rate 56 L 95 H Respiratory Rate 18 17 18 Blood Pressure 107/54 L 110/59 L Pulse Oximetry 96 95 11/05/18 04:30 Temperature 98 F Pulse Rate 54 L Respiratory Rate 18 Blood Pressure 120/64 Pulse Oximetry 96 Intake & Output 11/04/18 11/05/18 11/05/18 18:59 06:59 18:59 Intake Total 1480 / 1480 720 / 720 Output Total 400 / 400 Balance 1480 / 1480 320 / 320 Weight 75.6 kg Intake: IV 1000 / 1000 NS Inj 1,000 ML @ 100 mls/hr IV 1000 / 1000 .CONT .[facility]10H [facility] Rx#:[id number] Oral 480 / 480 720 / 720 Output: Urine 400 / 400 Other: # Voids 2 2 Date of Last Bowel Movement 11/03/18 11/03/18 Narrative: Alert and awake Abd: soft; non tender non distended Results - Labs 11/05/18 04:59 11/05/18 04:59 Laboratory Results - last 24 hr 11/05/18 11/05/18 04:59 04:59 WBC 4.9 RBC 3.88 L Hgb 12.9 L Hct 37.0 L MCV 95.4 MCH 33.2 MCHC 34.8 RDW 12.9 Plt Count 165 MPV 8.3 Neut % (Auto) 53.4 Lymph % (Auto) 31.6 [place] % (Auto) 13.4 H Eos % (Auto) 1.4 Baso % (Auto) 0.2 Neut # (Auto) 2.6 Lymph # (Auto) 1.6 [place] # (Auto) 0.7 Eos # (Auto) 0.1 Baso # (Auto) 0.0 WBC Differential . Differential Comment Auto diff final Sodium 141 Potassium 4.2 Chloride 107 Carbon Dioxide 30.4 Anion Gap 4 L BUN 11 Creatinine 1.05 Estimated GFR 70 L Random Glucose 93 Calcium 8.4 L - Imaging Imaging: ITS Impressions Abdomen/Pelvis CT 11/03/18 21:39 CONCLUSION: 1. Proximal to mid partial small bowel obstruction without obstructing lesion. This may relate to adhesions. No free air or free fluid. 2. The appendix is not definitively identified but no inflammatory changes seen within the right lower quadrant to suggest acute appendicitis. Abdomen X-Ray 11/04/18 00:00 CONCLUSION: Air-filled mildly dilated loops of small bowel are again noted consistent with possible partial small bowel obstruction or ileus. Assessment and Plan - Plan 68 year old male with abdominal pain/nausea/vomiting; radiological findings of SBO -Abdominal exam benign -Advance to regular diet -If tolerates breakfast can DC home today -Discussed with MARTIN Irene
--- NOTE | 2018-11-05 08:36 | P.PN ---
Subjective Interval history: no abdominal pain, n/v had a good BM lastevening already up this am doing exercises Physical Exam Vital signs: Vital Signs 11/04/18 09:03 11/04/18 12:00 11/04/18 16:00 Temperature 99.2 F 98.3 F 99.0 F Pulse Rate 64 67 70 Respiratory Rate 18 20 20 Blood Pressure 111/58 L 128/61 127/64 Pulse Oximetry 95 96 98 11/04/18 19:51 11/04/18 23:24 11/05/18 01:39 Temperature 98.3 F 98.8 F Pulse Rate 56 L 95 H Respiratory Rate 18 17 18 Blood Pressure 107/54 L 110/59 L Pulse Oximetry 96 95 11/05/18 04:30 Temperature 98 F Pulse Rate 54 L Respiratory Rate 18 Blood Pressure 120/64 Pulse Oximetry 96 Intake & Output 11/04/18 11/05/18 11/05/18 18:59 06:59 18:59 Intake Total 1480 / 1480 720 / 720 Output Total 400 / 400 Balance 1480 / 1480 320 / 320 Weight 75.6 kg Intake: IV 1000 / 1000 NS Inj 1,000 ML @ 100 mls/hr IV 1000 / 1000 .CONT .Q10H [facility] Rx#:[id number] Oral 480 / 480 720 / 720 Output: Urine 400 / 400 Other: # Voids 2 2 Date of Last Bowel Movement 11/03/18 11/03/18 Narrative: Alert and awake anicterl lungs- clear regular rhythm abodmen-soft, good bowel sounds, nontneder extrmites no edema Results - Labs CBC & Chem 7: 11/05/18 04:59 11/05/18 04:59 Laboratory Results - last 24 hr 11/05/18 11/05/18 04:59 04:59 WBC 4.9 RBC 3.88 L Hgb 12.9 L Hct 37.0 L MCV 95.4 MCH 33.2 MCHC 34.8 RDW 12.9 Plt Count 165 MPV 8.3 Neut % (Auto) 53.4 Lymph % (Auto) 31.6 [place] % (Auto) 13.4 H Eos % (Auto) 1.4 Baso % (Auto) 0.2 Neut # (Auto) 2.6 Lymph # (Auto) 1.6 [place] # (Auto) 0.7 Eos # (Auto) 0.1 Baso # (Auto) 0.0 WBC Differential . Differential Comment Auto diff final Sodium 141 Potassium 4.2 Chloride 107 Carbon Dioxide 30.4 Anion Gap 4 L BUN 11 Creatinine 1.05 Estimated GFR 70 L Random Glucose 93 Calcium 8.4 L - Imaging Impressions Abdomen X-Ray 11/04/18 00:00 CONCLUSION: Air-filled mildly dilated loops of small bowel are again noted consistent with possible partial small bowel obstruction or ileus. 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 Hyperlipidemia Resume home medications on discharge FEN possible DC this am after breakfast here from [place] - visiting- advised OP ff up with PCP in [place] Dc home today diet as tolerated activity as tolerated Meds- continue home meds advise avoid streess FF up with PCP in [place]
[2018-11-05 12:16] VITALS: BP 104/62; PULSE 57; TEMP 97.3; O2SAT 96
== END 2018-11-05 13:14 | disposition home or self-care (01) | DRG 390 ==
LOC: NEPE 21:18 → NEDA 23:43 → N06 11-04 01:07
PROVIDERS: ADMIT Internal Medicine; ATTEND Internal Medicine
CPT/HCPCS: 74000; 74018; 74177; 80048; 80053; 81001; 83690; 83735; 85025; 85610; 85730; 90760; 96360; 99285; J7030; Q9967